=== PATIENT | male | born 1950 | race Caucasian/White ===

== ENCOUNTER 2018-08-17 06:17 | Inpatient (IN) | payer MEDICARE, MEDICAID ==
[2018-08-17] VITALS (14 sets, daily range): BP systolic 89–122; BP diastolic 50–80
[~2018-08-17] VITALS: Ht 172.7 cm; Wt 75.9 kg
[2018-08-17] MEDS ORDERED: normal saline 1000ML IV soln IV ONE (06:25)
[2018-08-17] MEDS ORDERED: ASPI-1265 PEG (06:42)
[2018-08-17] MEDS ORDERED: ATOR40TA PEG (06:42)
[2018-08-17] MEDS ORDERED: ENOX40SY7 SUBCUT (06:43)
[2018-08-17] MEDS ORDERED: FAMO-128 PEG ×2 (06:43→06:55)
[2018-08-17] MEDS ORDERED: FURO40TA4 PEG (06:44)
[2018-08-17] MEDS ORDERED: HYDR12.5 PEG (06:55)
[2018-08-17] MEDS ORDERED: LACO100T2 PEG (06:55)
[2018-08-17] MEDS ORDERED: TICA90TA2 PEG (06:56)
[2018-08-17] MEDS ORDERED: LISI-600 PEG (06:56)
[2018-08-17] MEDS ORDERED: LACT10SO6 PEG (06:56)
[2018-08-17] MEDS ORDERED: PRED5TAB PEG (06:56)
[2018-08-17] MEDS ORDERED: FAMO-128 PO (06:57)
[2018-08-17] MEDS ORDERED: NORepinephrine 8mg/ 250ml NS 250 ML IV SCH (07:15)
--- NOTE | 2018-08-17 07:16 | NUR ---
ON GURNEY WITH VENT INTACT. AC MODE WITH FIO2 30%. OCCASIONAL MOVEMENT OF UPPER EXTREMS, BUT WEAK AND UNCOORDINATED. O2 SAT 95%. RR 18./MIN. RESP THERAPY AT BS, UNABLE TO OBTAIN ABG AFTER [address] MASSEY NOTIFIED.
--- NOTE | 2018-08-17 07:20 | NUR ---
LEVO DRIP DECREASED TO 16 MCG/MIN. CURRENT BP 128/[address] MASSEY ORDERED TO WEAN PATIENT FROM LEVO DRIP TOLERATED.
[2018-08-17] MEDS ORDERED: diatrozoate meglu/diatrozoate sod (37% iodine) 120ML oral solution PO ONE (07:55)
[2018-08-17] MEDS ORDERED: diatr meglu/diatrizoate 30ml oral sol.-(3 dose) bottle PO ONE (07:55)
[2018-08-17] MEDS: normal saline 1000ml 1,000 ML IV SCH ×2 (08:11→14:51)
[2018-08-17] MEDS ORDERED: NORepinephrine 8mg/ 250ml NS 250 ML IV PRN (08:11)
[2018-08-17] MEDS ORDERED: potassium Cl 20 mEq SR tablet PO PRN ×2 (08:15)
[2018-08-17] MEDS ORDERED: potassium Cl 40MEQ/250ML bag 250 ML IV PRN ×2 (08:15)
[2018-08-17] MEDS ORDERED: ondansetron/PF 4mg/2ml inj IV PRN (08:15)
[2018-08-17] MEDS ORDERED: morphine 4 MG/ML inj SYRINge IV PRN (08:15)
[2018-08-17] MEDS ORDERED: acetaminophen 325mg tablet PO PRN ×2 (08:15)
[2018-08-17] MEDS ORDERED: morphine 2 MG/ML inj. syringe IV PRN (08:15)
[2018-08-17] MEDS ORDERED: potassium Cl 40MEQ/NS 500ml 500 ML IV PRN ×2 (08:15)
--- NOTE | 2018-08-17 08:19 | NUR ---
TC FROM SANDRA, RN PICC NURSE. SANDRA STATES THAT DR. BAGLEY WILL BE INSERTING CENTRAL LINE LATER ON TODAY AND NO NEED FOR PICC LINE INSERTION AT THIS TIME. PIV X 2 PATENT AND INFUSING WELL.
--- NOTE | 2018-08-17 08:22 | NUR ---
LAB ATTEMPTING TO DRAW BLOOD. SMALL AMOUNT OF BLOOD OBTAINED AND TAKEN TO LAB. DR. BAGLEY HERE TO SEE PATIENT.
[2018-08-17] MEDS ORDERED: ipratropium/albuterol 3ml nebule NEB PRN (08:50)
[2018-08-17] MEDS ORDERED: NORepinephrine bitartrate 8 MG in NS 250 ML BAG (32 mcg/ml) IV ONE (09:00)
[2018-08-17 09:06] LABS: BASOPHILS # (AUTO) 0.1 X10'3 (0-0.2); BASOPHILS % (AUTO) 0.3 % (0-1); EOSINOPHILS # (AUTO) 0.1 X10'3 (0-0.9); EOSINOPHILS % (AUTO) 0.4 % (0-6); HEMATOCRIT 35.3 % (42.0-52.0); HEMOGLOBIN 11.4 g/dl (14.0-17.9); LYMPHOCYTES # (AUTO) 2.3 X10'3 (1.1-4.8); LYMPHOCYTES % (AUTO) 8.9 % (21-51); MEAN CORPUSCULAR HEMOGLOBIN 29.2 PG (27.0-31.0); MEAN CORPUSCULAR HGB CONC 32.3 g/dL (33.0-36.5); MEAN CORPUSCULAR VOLUME 90.6 FL (78-98); MEAN PLATELET VOLUME 10.9 FL (7.4-10.4); MONOCYTES % (AUTO) 7.7 % (2-12); NEUTROPHILS # (AUTO) 21.8 X10'3 (1.8-7.7); NEUTROPHILS % (AUTO) 82.7 % (42-75); PLATELET COUNT 264 X10'3 (140-440); RED BLOOD COUNT 3.89 X10'6 (4.70-6.10)
[2018-08-17 09:11] LABS: CLARITY,URINE CLEAR (Clear); COLOR,URINE YELLOW (Yellow); GLUCOSE, URINE NEGATIVE (Neg); KETONES,URINE NEGATIVE (Neg); LEUKOCYTE ESTERASE ,URINE MODERATE (Neg); NITRITES, URINE NEGATIVE (Neg); OCCULT BLOOD,URINE TRACE-INTACT (Neg); PROTEIN,URINE NEGATIVE (Neg); UA COLLECTION TYPE FOLEY CATH; UROBILINOGEN,URINE 0.2 E.U/dL (0.2-1.0)
[2018-08-17 09:13] LABS: WHITE BLOOD COUNT 26.3 X10'3 (4.5-11.0)
[2018-08-17 09:16] LABS: WBC,URINE 20-30 /HPF (0-4)
[2018-08-17 09:18] LABS: BACTERIA,URINE NONE SEEN /HPF (Neg); SQUAMOUS EPITHELIAL CELL,UR FEW /LPF (FEW)
--- NOTE | 2018-08-17 09:18 | NUR ---
TELEPHONE REPORT TO STACIE WETZEL ON CICU.
[2018-08-17 09:19] LABS: YEAST MODERATE /HPF (NEGATIVE)
[2018-08-17 09:23] LABS: PARTIAL THROMBOPLASTIN TIME 22 SECONDS (22-32)
[2018-08-17 09:25] LABS: ALANINE AMINOTRANSFERASE 98 U/L (12-78); ALBUMIN 1.9 G/DL (3.4-5.0); ALBUMIN/GLOBULIN RATIO 0.5 (1.1-1.5); ALKALINE PHOSPHATASE 99 IU/L (46-116); ANION GAP 5 (8-16); ASPARTATE AMINO TRANSFERASE 46 U/L (10-37); BILIRUBIN,TOTAL 0.3 MG/DL (0.1-1.0); BLOOD UREA NITROGEN 93 MG/DL (7-18); BUN/CREATININE RATIO 67.9 (5.4-32.0); CALCIUM 7.8 MG/DL (8.5-10.1); CHLORIDE 114 MMOL/L (99-107); CREATININE 1.37 MG/DL (0.60-1.10); GLUCOSE 189 MG/DL (70-104); MAGNESIUM 3.1 MG/DL (1.5-2.4); POTASSIUM 3.3 MMOL/L (3.5-5.1); SODIUM 152 MMOL/L (135-145); TOTAL CARBON DIOXIDE 33.3 MMOL/L (24-32); eGFR 52 ML/MIN
[2018-08-17 09:34] LABS: ANISOCYTOSIS 1+; LARGE PLATELETS FEW; PLATELET ESTIMATE NORMAL; TOTAL CELLS COUNTED 100
[2018-08-17 09:46] LABS: TROPONIN I < 0.04 NG/ML (0.0-0.05)
--- NOTE | 2018-08-17 10:00 | NUR ---
Received report from ED, STACIE Landon. Pt brought to room via gurney. Pt is trached and is not responsive to verbal commands. Pt is on 16 mcg/min levophed, Map 73. IV fluid bolus infusing.
[2018-08-17] MEDS ORDERED: iohexol 300mg/ml 100ml inj. ONE (10:50)
[2018-08-17] MEDS: ipratropium/albuterol 3ml nebule NEB SCH ×4 (11:00→23:06)
[2018-08-17] MEDS ORDERED: ATRIN INH (11:01)
[2018-08-17] MEDS ORDERED: CHLO473M3 PO (11:01)
[2018-08-17] MEDS ORDERED: ZITTEL BALM TOP (11:01)
[2018-08-17] MEDS ORDERED: ALBU8.5H8 INH (11:01)
[2018-08-17] MEDS ORDERED: INSU100V9 SQ (11:01)
[2018-08-17] MEDS ORDERED: INSU100V11 SQ (11:01)
[2018-08-17] MEDS ORDERED: ALBU18HF2 (11:53)
[2018-08-17] MEDS ORDERED: ATRIN IH (11:53)
[2018-08-17] MEDS ORDERED: ALBU18HF2 IH (11:54)
[2018-08-17] MEDS ORDERED: vancomycin/NS 1 GM ADD-VANTAGE 250 ML IV PRN (12:00)
[2018-08-17] MEDS ORDERED: vancomycin/NS 1 GM ADD-VANTAGE 250 ML IV ONE (12:15)
--- NOTE | 2018-08-17 16:07 | NUR ---
Tube feeding consult. Patient presented from [facility] with sepsis and respiratory failure. Has trach and PEG, currently mechanically ventilated and sedated. H/o stroke, cardiac arrest, and respiratory failure prior to admission to [facility]. Sodium is elevated, recommend 200 ml water flush q 4. Recommend: 1. Continuous tube feeding with Vital AF at 65 ml/hr will provide 1560 ml volume, 1872 cals, 117 gm protein, 1265 ml water. 2. daily weights 3. Prealbumin q / 4. Additional water flush 200 ml/hr Addendum: 08/17/18 at [address] Amended: Links added.
--- NOTE | 2018-08-17 18:30 | NUR ---
Problems reprioritized. Patient report given, questions answered & plan of care reviewed with STACIE Cortez.
[2018-08-17] MEDS: piperacillin/tazo 3.375gm/50ml 50 ML IV SCH (20:23)
[2018-08-17] MEDS: heparin, porcine 5000 units/ml vial SQ SCH (20:25)
[2018-08-18] VITALS (14 sets, daily range): BP systolic 89–126; BP diastolic 46–73
[2018-08-18] MEDS: normal saline 1000ml 1,000 ML IV SCH ×3 (00:06→06:24)
[2018-08-18] MEDS: morphine 2 MG/ML inj. syringe IV PRN ×3 (02:53→13:47)
[2018-08-18] MEDS ORDERED: VANCOMYCIN LEVEL IV SCH (03:00)
[2018-08-18 03:05] LABS: BASOPHILS # (AUTO) 0.1 X10'3 (0-0.2); BASOPHILS % (AUTO) 0.3 % (0-1); EOSINOPHILS # (AUTO) 0.1 X10'3 (0-0.9); EOSINOPHILS % (AUTO) 0.8 % (0-6); HEMATOCRIT 27.8 % (42.0-52.0); HEMOGLOBIN 9.1 g/dl (14.0-17.9); LYMPHOCYTES # (AUTO) 1.8 X10'3 (1.1-4.8); LYMPHOCYTES % (AUTO) 11.7 % (21-51); MEAN CORPUSCULAR HEMOGLOBIN 29.7 PG (27.0-31.0); MEAN CORPUSCULAR HGB CONC 32.5 g/dL (33.0-36.5); MEAN CORPUSCULAR VOLUME 91.3 FL (78-98); MEAN PLATELET VOLUME 10.7 FL (7.4-10.4); MONOCYTES # (AUTO) 1.1 X10'3 (0-0.9); MONOCYTES % (AUTO) 6.9 % (2-12); NEUTROPHILS # (AUTO) 12.2 X10'3 (1.8-7.7); NEUTROPHILS % (AUTO) 80.3 % (42-75); PLATELET COUNT 173 X10'3 (140-440); RED BLOOD COUNT 3.05 X10'6 (4.70-6.10); RED CELL DISTRIBUTION WIDTH 16.9 % (11.5-14.5); WHITE BLOOD COUNT 15.2 X10'3 (4.5-11.0)
[2018-08-18 03:22] LABS: ALANINE AMINOTRANSFERASE 66 U/L (12-78); ALBUMIN 1.7 G/DL (3.4-5.0); ALBUMIN/GLOBULIN RATIO 0.5 (1.1-1.5); ALKALINE PHOSPHATASE 80 IU/L (46-116); ANION GAP 3 (8-16); ASPARTATE AMINO TRANSFERASE 29 U/L (10-37); BILIRUBIN,TOTAL 0.3 MG/DL (0.1-1.0); BLOOD UREA NITROGEN 42 MG/DL (7-18); BUN/CREATININE RATIO 62.7 (5.4-32.0); CALCIUM 7.8 MG/DL (8.5-10.1); CHLORIDE 121 MMOL/L (99-107); CREATININE 0.67 MG/DL (0.60-1.10); GLUCOSE 124 MG/DL (70-104); MAGNESIUM 2.2 MG/DL (1.5-2.4); PHOSPHORUS 2.4 MG/DL (2.3-4.5); POTASSIUM 3.4 MMOL/L (3.5-5.1); SODIUM 153 MMOL/L (135-145); TOTAL CARBON DIOXIDE 28.8 MMOL/L (24-32); TOTAL PROTEIN 5.1 G/DL (6.4-8.2); VANCOMYCIN,RANDOM 3.5 UG/ML; eGFR > 90 ML/MIN
[2018-08-18] MEDS: ipratropium/albuterol 3ml nebule NEB SCH ×3 (03:28→11:42)
[2018-08-18 04:10] LABS: ABG BASE EXCESS 1.8 mmol/L (-2.0-3.0); ABG HCO3 25.2 mmol/L (22.0-26.0); ABG OXYGEN SATURATION 94.8 % (95-98); ABG PCO2 (T) 34.5 mmHg (35.0-48.0); ABG PO2 (T) 75.8 mmHg (83-108); FCOHb 0.2 % (0.5-1.5); FMetHb 0.1 % (0.3-1.12); FO2Hb 94.5 % (94-100); MINUTE VOLUME 13 L/min; PATIENT TEMPERATURE 36.7; PEEP 5 cm H2O; RESPIRATORY RATE 10 b/min; RESPIRATORY RATE (OBSERVED) 28 b/min; TIDAL VOLUME 400 mL; TOTAL HEMOGLOBIN 10.4 G/dl (14.0-18.0)
--- NOTE | 2018-08-18 06:36 | NUR ---
Patient in room CICU 2008. I have received report from Dana and had the opportunity to ask questions and assume patient care.
[2018-08-18] MEDS ORDERED: vancomycin/NS 1 GM ADD-VANTAGE 250 ML IV ONE (07:25)
[2018-08-18] MEDS: heparin, porcine 5000 units/ml vial SQ SCH (07:43)
[2018-08-18] MEDS: piperacillin/tazo 3.375gm/50ml 50 ML IV SCH (07:44)
[2018-08-18] MEDS ORDERED: PIPE2.2535 IV (10:34)
--- NOTE | 2018-08-18 13:38 | NUR ---
Called report to Kary elizalde [facility].
--- NOTE | 2018-08-18 14:16 | NUR ---
CVL dc'd. Aileen left in place per Kary at [facility]. Transfered via EMS with STACIE Anne at bedside.
== END 2018-08-18 14:15 | DRG 871 ==
LOC: ER 06:19 → ED HOLD 09:51 → CICU 2S 09:52
PROVIDERS: ADMIT Internal Medicine Critical Care Medicine; ATTEND Internal Medicine Critical Care Medicine
PROC: 02HV33Z Insertion of Infusion Device into Superior Vena Cava, Percutaneous Approach (ICD-10-PCS; principal; 2018-08-17)
PROC: BW251ZZ Computerized Tomography (CT Scan) of Chest, Abdomen and Pelvis using Low Osmolar Contrast (ICD-10-PCS; 2018-08-17)
PROC: 5A1945Z Respiratory Ventilation, 24-96 Consecutive Hours (ICD-10-PCS; 2018-08-17)
DX: A41.9 Sepsis, unspecified organism (principal); J96.00 Acute respiratory failure, unspecified whether with hypoxia or hypercapnia; R57.1 Hypovolemic shock; M48.54XA Collapsed vertebra, not elsewhere classified, thoracic region, initial encounter for fracture; Z99.11 Dependence on respirator [ventilator] status; K52.9 Noninfective gastroenteritis and colitis, unspecified; I10 Essential (primary) hypertension; J44.9 Chronic obstructive pulmonary disease, unspecified; B19.20 Unspecified viral hepatitis C without hepatic coma; F15.90 Other stimulant use, unspecified, uncomplicated; Z93.0 Tracheostomy status; Z93.1 Gastrostomy status; Z59.0 Homelessness; Z79.82 Long term (current) use of aspirin; Z79.4 Long term (current) use of insulin; Z79.899 Other long term (current) drug therapy; Z86.73 Personal history of transient ischemic attack (TIA), and cerebral infarction without residual deficits; Z86.74 Personal history of sudden cardiac arrest
CPT/HCPCS: 36415; 36600; 71045; 71260; 74177; 80053; 80202; 81001; 82803; 82948; 83605; 83735; 84100; 84145; 84484; 85018; 85025; 85610; 85730; 87040; 87070; 87077; 87088; 87186; 93005; 94002; 94003; 94640; 94760; 96360; 97161; 97530; 97535; 99291; G0378; J1644; J2270; J2543; J3370; J3480; Q9963; Q9967

== ENCOUNTER 2018-09-02 15:15 | Outpatient (CLI) | payer OTHER ==
[~2018-09-02 15:15] MED LIST: ALBU8.5H8 INH; ASPI-1265 PEG; ATOR40TA PEG; ATRIN INH; CHLO473M3 PO; ENOX40SY7 SUBCUT; FAMO-128 PEG; INSU100V11 SQ; INSU100V9 SQ; LACO100T2 PEG; LACT10SO6 PEG; PRED5TAB PEG; TICA90TA2 PEG; ZITTEL BALM TOP
== END 2018-09-02 23:59 | disposition home or self-care (01) ==
LOC: CARD DIAG 15:15
PROVIDERS: ATTEND Internal Medicine Critical Care Medicine
DX: I08.0 Rheumatic disorders of both mitral and aortic valves (principal); J96.90 Respiratory failure, unspecified, unspecified whether with hypoxia or hypercapnia; I10 Essential (primary) hypertension; J44.9 Chronic obstructive pulmonary disease, unspecified
CPT/HCPCS: 93306